=== PATIENT | female | born 1960 | race Asian ===

== ENCOUNTER 2016-11-13 10:22 | Outpatient (CLI) | payer OTHER ==
[~2016-11-13 10:22] MED LIST: AMBIEN5 MG PO; ASA LO-DOSE81 MG PO; BETAPACE80 MG PO; CALCITRIOL0.5 MCG OR; CARV12.5 PO; CLON0.5T36 PO; CLOP75TA2 PO; MELOXICAM15 MG OR; NEXIUM40 M1 PO; NITROSTAT0.4 MG SL; OMEP40CA PO; SIMV10TA PO; VENLAFAXINE75 M2 PO
== END 2016-11-13 19:43 | disposition home or self-care (01) ==
LOC: MAMMO 10:22
DX: Z12.31 Encounter for screening mammogram for malignant neoplasm of breast (principal)
CPT/HCPCS: G0202-TC

== ENCOUNTER 2017-09-16 14:21 | Outpatient (CLI) | payer OTHER | END 2017-09-16 20:09 | disposition home or self-care (01) | LOC: RAD 14:21 | DX: M06.4 Inflammatory polyarthropathy (principal) ==

== ENCOUNTER 2017-09-23 11:37 | Emergency (ER) | payer OTHER ==
[~2017-09-23] VITALS: Ht 167.6 cm; Wt 66.7 kg
[2017-09-23 13:58] VITALS: BP 157/72; TEMP 97.2
== END 2017-09-23 14:02 | disposition home or self-care (01) ==
LOC: ED 11:37
DX: R22.42 Localized swelling, mass and lump, left lower limb (principal); W01.190A Fall on same level from slipping, tripping and stumbling with subsequent striking against furniture, initial encounter; Y92.89 Other specified places as the place of occurrence of the external cause
CPT/HCPCS: 96372; 99283; J1885